=== PATIENT | female | born 1995 | race American Indian/Alaskan Native ===

== ENCOUNTER 2017-04-12 02:23 | Emergency (ER) | payer MEDICAID ==
--- NOTE | 2017-04-12 08:46 | Emergency Department Report ---
ED Chest Pain HPI - General Chief Complaint: Chest Pain Stated Complaint: CHEST DISCOMFORT Time Seen by Provider: 04/12/17 08:37 Source: patient Mode of arrival: Ambulatory Limitations: No Limitations - History of Present Illness Initial Comments: 21-year-old female here with chest pain that started approximately 2 AM this morning. Patient states feels like pressure in the center of her chest. She had some mild shortness of breath with it. She's never had pain like this in the past. She appears well she denied any fevers chills nausea vomiting. MD Complaint: chest pain -: Sudden (2am) Onset: during rest Pain Location: substernal Pain Radiation: none Quality: heaviness Improves With: nothing Worsens With: nothing re: denies: nausea, vomting, diaphoresis, dyspnea - Related Data Previous Rx's Medication Instructions Recorded Last Taken Type Acetaminophen [Tylenol Arthritis] 650 mg PO Q8HR PRN #60 tablet.er 04/12/17 Unknown Rx Allergies Allergy/AdvReac Type Severity Reaction Status Date / Time No Known Allergies Allergy Unverified 04/12/17 02:33 Heart Score - HEART Score History: Slightly suspicious EKG: Normal Age: < 45 Risk factors: No known risk factors Troponin: < normal limit HEART Score: 0 ED Review of Systems ROS: Stated complaint: CHEST DISCOMFORT Other details as noted in HPI Comment: All other systems reviewed and negative Constitutional: denies: chills, fever Eyes: denies: eye pain, eye discharge, vision change ENT: denies: ear pain, throat pain Respiratory: denies: cough, shortness of breath, wheezing Cardiovascular: chest pain. denies: palpitations Endocrine: no symptoms reported Gastrointestinal: denies: abdominal pain, nausea, diarrhea Genitourinary: denies: urgency, dysuria, discharge Musculoskeletal: denies: back pain, joint swelling, arthralgia Skin: denies: rash, lesions Neurological: denies: headache, weakness, paresthesias Psychiatric: denies: anxiety, depression Hematological/Lymphatic: denies: easy bleeding, easy bruising ED Past Medical Hx - Past Medical History Previous Medical History?: No Hx Asthma: Yes - Surgical History Past Surgical History?: No - Family History Family history: no significant - Social History Smoking Status: Never Smoker Substance Use Type: None - Medications Home Medications: Home Medications Medication Instructions Recorded Confirmed Last Taken Type Acetaminophen [Tylenol Arthritis] 650 mg PO Q8HR PRN #60 tablet.er 04/12/17 Unknown Rx ED Physical Exam - General Limitations: No Limitations General appearance: alert, in no apparent distress - Head Head exam: Present: atraumatic, normocephalic - Eye Eye exam: Present: normal appearance - ENT ENT exam: Present: mucous membranes moist - Neck Neck exam: Present: normal inspection - Respiratory Respiratory exam: Present: normal lung sounds bilaterally. Absent: respiratory distress, wheezes, rales - Cardiovascular Cardiovascular Exam: Present: regular rate, normal rhythm, normal heart sounds. Absent: systolic murmur, diastolic murmur, rubs, gallop - GI/Abdominal GI/Abdominal exam: Present: soft, normal bowel sounds - Extremities Exam Extremities exam: Present: normal inspection - Back Exam Back exam: Present: normal inspection - Neurological Exam Neurological exam: Present: alert, oriented X3 - Psychiatric Psychiatric exam: Present: normal affect, normal mood - Skin Skin exam: Present: warm, dry, intact, normal color. Absent: rash ED Course Vital Signs 04/12/17 04/12/17 02:29 10:13 Temperature 97.9 F 97.7 F Pulse Rate 91 H 81 Respiratory 20 18 Rate Blood Pressure 120/77 Blood Pressure 106/65 [Right] O2 Sat by Pulse 100 100 Oximetry ED Medical Decision Making - Lab Data Result diagrams: 04/12/17 09:05 04/12/17 09:01 - EKG Data -: EKG Interpreted by Me - EKG Data 04/12/17 08:49 Sinus 83 normal axis normal intervals low voltage no ST-T wave changes - Medical Decision Making Patient with chest pain. Young patient plan to treat with IV Toradol and will reassess. Chest x-ray basic labs. Patient's given single dose of IV Toradol prior to aware that she is . I counseled the patient and she was given a dose of NSAIDs. I do not believe a single dose of insulin will be harmful for the . Patient has a negative chest x-ray she was screaming during this chest x-ray. I do not feel the patient has a PE. She has normal vital signs her chest pain is not consistent with likely PE diagnosis. At this point I will not image her further however if her symptoms continue she will need to return to the emergency department for further evaluation. Portions of this chart were dictated with dictation software. There may be dictation errors contained within this note. Critical care attestation.: If time is entered above; I have spent that time in minutes in the direct care of this critically ill patient, excluding procedure time. ED Disposition Clinical Impression: Chest pain Disposition: DC-01 TO HOME OR SELFCARE Is pt being admited?: No Condition: Stable Instructions: Chest Pain (ED) Prescriptions: Acetaminophen [Tylenol Arthritis] 650 mg PO Q8HR PRN #60 tablet.er PRN Reason: Pain
[2017-04-12] MEDS ORDERED: TORADOL IM ONE (08:50)
--- NOTE | 2017-04-12 09:15 | XRay Report ---
CHEST 2 VIEWS INDICATION: Chest pain. COMPARISON: None similar at this institution. FINDINGS: PA and lateral chest radiographs demonstrate normal cardiomediastinal silhouette. Clear lungs. Intact bones. Abdomen shielded. CONCLUSION: No acute disease in the chest. Thank you for the opportunity to participate in this patient's care.
[2017-04-12 09:17] LABS: Basophils % (Auto) 0.4 % (0.0-1.8); Eosinophils % (Auto) 1.5 % (0.0-4.3); Hematocrit 30.4 % (30.3-42.9); Hemoglobin 9.5 gm/dl (10.1-14.3); Mean Corpuscular HGB Conc 31 % (30-34); Mean Corpuscular Volume 78 fl (79-97); Platelet Count 279 K/mm3 (140-440); Red Blood Count 3.88 M/mm3 (3.65-5.03); Red Cell Distribution Width 17.9 % (13.2-15.2); White Blood Count 7.6 K/mm3 (4.5-11.0)
[2017-04-12 09:20] LABS: Mean Corpuscular Hemoglobin 25 pg (28-32)
[2017-04-12 09:32] LABS: Anion Gap 17 mmol/L; Calcium 8.4 mg/dL (8.4-10.2); Carbon Dioxide 23 mmol/L (22-30); Chloride 101.1 mmol/L (98-107); Glucose 88 mg/dL (65-100); Potassium 3.9 mmol/L (3.6-5.0); Sodium 137 mmol/L (137-145)
[2017-04-12 11:01] LABS: BUN/Creatinine Ratio 11.66; Blood Urea Nitrogen 7 mg/dL (7-17)
[2017-04-12 11:47] VITALS: BP 118/70
== END 2017-04-12 11:48 | disposition home or self-care (01) ==
LOC: ED 02:23
DX: R07.2 Precordial pain (principal); J45.909 Unspecified asthma, uncomplicated
CPT/HCPCS: 36415; 71020; 80048; 85025; 93005; 93010; 96372; 99284; J1885

== ENCOUNTER 2021-03-24 12:07 | Emergency (ER) | payer MEDICAID ==
[2021-03-24 13:46] VITALS: BP 113/71
--- NOTE | 2021-03-24 17:35 | Emergency Department Report ---
ED Extremity Problem HPI - General Chief complaint: Extremity Injury, Lower Stated complaint: KNEE PAIN Time Seen by Provider: 03/24/21 14:59 Source: patient, EMS Mode of arrival: Ambulatory Limitations: No Limitations - History of Present Illness Initial comments: This is a pleasant 25-year-old female who presents the emergency department chief complaint of right knee pain over the past week. Patient reports she was going down a hill when she tripped over a bump landing on her right knee. She was seen at another emergency department and had an [employer] bandage applied after x- rays were negative and woke up the next morning with swelling in the ankle which concerned her. She reports she also the back of her head but did not lose consciousness. She denies any blood thinner use. She reports does have some pain to the back of the head but it has been improving. She denies any associated fever, chills, night sweats, headache, dizziness, blurry vision, nausea vomiting, diarrhea, chest pain, shortness of breath, weakness or any other associated symptoms. - Related Data Previous Rx's Medication Instructions Recorded Last Taken Type Acetaminophen [Tylenol Arthritis] 650 mg PO Q8HR PRN #60 tablet.er 04/12/17 Unknown Rx Naproxen [EC-Naproxen] 500 mg PO BID #20 tablet. 03/24/21 Unknown Rx Allergies Allergy/AdvReac Type Severity Reaction Status Date / Time No Known Allergies Allergy Unverified 04/12/17 02:33 ED Review of Systems ROS: Stated complaint: KNEE PAIN Other details as noted in HPI Comment: All other systems reviewed and negative Constitutional: denies: chills, fever Eyes: denies: eye pain, eye discharge, vision change ENT: denies: ear pain, throat pain Respiratory: denies: cough, shortness of breath, wheezing Cardiovascular: denies: chest pain, palpitations Endocrine: no symptoms reported Gastrointestinal: denies: abdominal pain, nausea, diarrhea Genitourinary: denies: urgency, dysuria, discharge Musculoskeletal: as per HPI, arthralgia. denies: back pain, joint swelling Skin: denies: rash, lesions Neurological: denies: headache, weakness, paresthesias Psychiatric: denies: anxiety, depression Hematological/Lymphatic: denies: easy bleeding, easy bruising ED Past Medical Hx - Past Medical History Previous Medical History?: Yes Hx Asthma: Yes - Surgical History Past Surgical History?: No - Social History Smoking Status: Never Smoker Substance Use Type: None - Medications Home Medications: Home Medications Medication Instructions Recorded Confirmed Last Taken Type Acetaminophen [Tylenol Arthritis] 650 mg PO Q8HR PRN #60 tablet.er 04/12/17 Unknown Rx Naproxen [EC-Naproxen] 500 mg PO BID #20 tablet. 03/24/21 Unknown Rx ED Physical Exam - General Limitations: No Limitations General appearance: alert, in no apparent distress - Head Head exam: Present: atraumatic, normocephalic - Eye Eye exam: Present: normal appearance, PERRL, EOMI Pupils: Present: normal accommodation - ENT ENT exam: Present: normal exam, normal orophraynx, mucous membranes moist - Neck Neck exam: Present: normal inspection, full ROM. Absent: tenderness, meningismus - Respiratory Respiratory exam: Present: normal lung sounds bilaterally. Absent: respiratory distress, wheezes, rales, rhonchi, stridor - Cardiovascular Cardiovascular Exam: Present: regular rate, normal rhythm. Absent: systolic murmur, diastolic murmur, rubs, gallop - GI/Abdominal GI/Abdominal exam: Present: soft, normal bowel sounds - Extremities Exam Extremities exam: Present: normal inspection - Back Exam Back exam: Present: normal inspection - Neurological Exam Neurological exam: Present: alert, oriented X3 - Psychiatric Psychiatric exam: Present: normal affect, normal mood - Skin Skin exam: Present: warm, dry, intact, normal color. Absent: rash ED Course Vital Signs 03/24/21 13:46 Temperature 98.2 F Pulse Rate 80 Respiratory 16 Rate Blood Pressure 113/71 O2 Sat by Pulse 100 Oximetry - Reevaluation(s) Reevaluation #1: 03/24/21 17:57 ED Medical Decision Making - Radiology Data Radiology results: report reviewed Suprapatellar joint effusion, no acute findings otherwise. Read by radiology - Medical Decision Making Is a pleasant 25-year-old female presents the emergency department chief complaint of right knee pain after a ground-level fall 1 week ago. X-ray today shows a suprapatellar joint effusion but no acute findings otherwise. Patient will be given anti-inflammatories and orthopedic surgery follow-up. She no post erior calf tenderness and negative Homans' sign bilaterally. Recommended rest, ice, compression elevation. She verbalized understand the diagnosis, treatment and follow-up instructions all of her questions were answered. Is regarding her head injury she had low risk by CT [place] head score and I do not think any CT imaging is needed at this time. 03/24/21 17:58 - Differential Diagnosis Strain, sprain, fracture, contusion Critical care attestation.: If time is entered above; I have spent that time in minutes in the direct care of this critically ill patient, excluding procedure time. ED Disposition Clinical Impression: Right knee sprain Qualifiers: Encounter type: initial encounter Involved ligament of knee: unspecified ligament Qualified Code(s): S83.91XA - Sprain of unspecified site of right knee, initial encounter Disposition: HOME / SELF CARE / HOMELESS Is pt being admited?: No Condition: Stable Instructions: Knee Sprain, Adult, [id number] Prescriptions: Naproxen [EC-Naproxen] 500 mg PO BID #20 tablet. Referrals: PRIMARY MD KATHLEEN [Primary Care Provider] - 3-5 Days ANTOINETTE HUGHES MD [Staff Physician] - 3-5 Days Time of Disposition: 17:59
--- NOTE | 2021-03-24 17:39 | XRay Report ---
RIGHT KNEE 3 VIEWS INDICATION / CLINICAL INFORMATION: Fall with right knee pain. COMPARISON: None available. FINDINGS: BONES / JOINT(S): There is a small to moderate suprapatellar joint effusion. The joint spaces are wel l-maintained. There is no evidence of significant arthritis. I see no evidence of acute fracture, sub luxation or other abnormality. SOFT TISSUES: No significant abnormality. ADDITIONAL FINDINGS: None. Signer Name: Femi Camejo MD Signed: 03/24/2021 5:34 PM Workstation Name: [id number]
== END 2021-03-24 18:06 | disposition home or self-care (01) ==
LOC: ED 12:07
DX: S83.91XA Sprain of unspecified site of right knee, initial encounter (principal); J45.909 Unspecified asthma, uncomplicated; W01.0XXA Fall on same level from slipping, tripping and stumbling without subsequent striking against object, initial encounter; Y93.89 Activity, other specified; Y92.89 Other specified places as the place of occurrence of the external cause; Y99.8 Other external cause status
CPT/HCPCS: 99283